=== PATIENT | male | born 1990 | race African-American/Black ===

== ENCOUNTER 2021-01-23 04:47 | Emergency (ER) | payer OTHER ==
[~2021-01-23] VITALS: Ht 175.3 cm; Wt 68.9 kg
[2021-01-23 04:50] VITALS: BP 131/79
--- NOTE | 2021-01-23 04:50 | NUR ---
TO BED AMBULATORY
--- NOTE | 2021-01-23 05:16 | NUR ---
Dr. Carter examining patient.
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
--- NOTE | 2021-01-23 05:25 | NUR ---
PT REPORTS UNABLE TO PROVIDE URINE SAMPLE AT THIS TIME. ERMD AWARE.
--- NOTE | 2021-01-23 05:30 | NUR ---
VANESSA AND JADEN OF [facility] COLLECTED AND TAKEN TO LAB BY BRENT LUCERO.
--- NOTE | 2021-01-23 05:31 | NUR ---
INITIATED TELEPSYCH REQUEST PER DR. Donna SMALL
--- NOTE | 2021-01-23 06:12 | NUR ---
LAB AT BEDSIDE.
[2021-01-23 06:21] LABS: BASOPHILS % (AUTO) 0.4 % (0.0-2.0); EOSINOPHILS # (AUTO) 0.2 K/uL (0-0.4); EOSINOPHILS % (AUTO) 2.6 % (0.0-4.0); HEMATOCRIT 37.7 % (36-52); HEMOGLOBIN 12.4 g/dL (12.0-18.0); LYMPHOCYTES # (AUTO) 2.9 K/uL (2.0-11.5); MEAN CORPUSCULAR HEMOGLOBIN 28 pg (27-31); MEAN CORPUSCULAR HGB CONC 33 g/dL (33-37); MEAN CORPUSCULAR VOLUME 85.1 fL (80-94); MONOCYTES # (AUTO) 0.7 K/uL (0.8-1.0); MONOCYTES % (AUTO) 8.3 % (1.7-9.3); NEUTROPHILS # (AUTO) 4.6 K/uL (1.8-7.7); NEUTROPHILS % (AUTO) 54.7 % (42.2-75.2); PLATELET COUNT (AUTO) 202 K/uL (140-450); RED BLOOD CELL COUNT(AUTO) 4.44 MIL/uL (4.20-6.10); RED CELL DISTRIBUTION WIDTH 13.8 % (11.6-13.7); WHITE BLOOD COUNT (AUTO) 8.4 K/uL (4.8-10.8)
[2021-01-23 06:36] LABS: ALBUMIN 3.1 g/dL (3.4-5.0); ANION GAP 8.9 (8-16); ASPARTATE AMINOTRANSFERASE 23 U/L (15-37); CARBON DIOXIDE 27.9 mmol/L (21-32); CHLORIDE 108 mmol/L (98-107); CREATININE 0.9 mg/dL (0.6-1.3); GFR ARICAN-AMERICAN 128 mL/min (>90); GLUCOSE 97 mg/dL (74-106); POTASSIUM 3.8 mmol/L (3.5-5.1); SODIUM SERUM 141 mmol/L (136-145); TOTAL BILIRUBIN 0.3 mg/dL (0.0-1.0); UREA NITROGEN, BLOOD 24 mg/dL (7-18)
[2021-01-23 06:37] LABS: SALICYLATE < 2.8 mg/dL (2.8-20.0)
[2021-01-23 06:38] LABS: ACETAMINOPHEN < 0.5 ug/ml (10-30)
--- NOTE | 2021-01-23 06:58 | NUR ---
Patient appears to be resting comfortably in bed. Vital Signs within normal limits. Respirations even and unlabored. PT DENIES PAIN OR DISCOMFORT AT THIS TIME. SI PRECAUTIONS REMAIN IN PLACE. WILL CONTINUE TO MONITOR.
--- NOTE | 2021-01-23 07:20 | NUR ---
Report and continuation of care received from CAROLEE Mejia.
--- NOTE | 2021-01-23 07:20 | NUR ---
REPORT GIVEN TO LYN RN FOR CHANGE OF SHIFT AND CONTINUITY OF CARE.
--- NOTE | 2021-01-23 07:30 | NUR ---
Patient presents asleep laying on left side with blanket. RR even/unlabored. Bed locked in lowest position, side rails x 1.
--- NOTE | 2021-01-23 07:58 | NUR ---
Patient on video conference with Tele[facility].
--- NOTE | 2021-01-23 08:05 | NUR ---
Patient states he feels "down and out - emotional and depressed" x 1 month. Reports feelin gS.I every once in a while, denies suicidal ideation at this time. Reports 6 previous suicide attempts, last attempt 2 weeks ago but "I stopped myself." Last treatment 2 years ago; reports seeing visions/spirits. Addendum: 01/23/21 at 0812 by JESS States used meth 7 times this year, last meth use 3 weeks ago; reports smoking marijuana yesterday.
--- NOTE | 2021-01-23 08:23 | NUR ---
Patient ambulated to restroom with steady/even gait for urine sample.
--- NOTE | 2021-01-23 08:24 | NUR ---
Breakfast tray at bedside.
--- NOTE | 2021-01-23 08:28 | NUR ---
Spoke with Dr. Marley who recommends voluntary in patient psychiatric facility; patient will be off 5150 hold d/t feeling passive suicideal ideations. Dr. Marley will reconsultate in 2 days if patient remains in ER. Addendum: 01/23/21 at [address] Lopez*
[2021-01-23] MEDS ORDERED: FLUoxetine 20 MG CAP PO SCH (09:00)
[2021-01-23 09:25] LABS: APPEARANCE,URINE CLEAR (CLEAR); BILIRUBIN,URINE NEGATIVE (NEGATIVE); BLOOD, URINE NEGATIVE (NEGATIVE); COLOR,URINE YELLOW (YELLOW); LEUKOCYTE ESTERASE ,URINE NEGATIVE (NEGATIVE); NITRITE, URINE NEGATIVE (NEGATIVE); UGLUCOSE NEGATIVE (NEGATIVE)
[2021-01-23 10:00] VITALS: BP 124/85
[2021-01-23 10:19] LABS: BARBITURATE, URINE NEGATIVE ng/ml (NEG <=200); BENZODIAZEPINE, URINE NEGATIVE ng/mL (NEG <=200); CANNABINOID, URINE POSITIVE ng/mL (NEG <=50); COCAINE, URINE NEGATIVE ng/mL (NEG <=300); OPIATE, URINE NEGATIVE ng/mL (NEG <=2000); PHENCYCLIDINE SCREEN,URINE NEGATIVE ng/mL (NEG <=25)
--- NOTE | 2021-01-23 10:26 | NUR ---
Patient resting in position of comfort. VSS; respirations even/unlabored. Given homeless packet and psychiatric resource packet. Patient acknowledged and states he will utilize bus pass to go to [facility] for help.
--- NOTE | 2021-01-23 10:38 | NUR ---
Patient discharged with v/s stable. Written and verbal after care instructions given and explained. Patient verbalized understanding. Ambulatory with steady gait. All questions addressed prior to discharge. Advised to follow up with PMD.
== END 2021-01-23 10:38 | disposition home or self-care (01) ==
LOC: MED 04:47
DX: F32.9 Major depressive disorder, single episode, unspecified (principal); Z20.822 Contact with and (suspected) exposure to COVID-19; R45.851 Suicidal ideations; F20.9 Schizophrenia, unspecified; Z88.8 Allergy status to other drugs, medicaments and biological substances
CPT/HCPCS: 80053; 80305; 81003; 85025; 87426; 99283; G0480; G0482; U0003